=== PATIENT | male | born 1975 | race American Indian/Alaskan Native ===

== ENCOUNTER 2017-08-25 10:04 | Emergency (ER) | payer SELFPAY ==
[2017-08-25] MEDS ORDERED: ASPIRIN PO ONE (10:15)
[2017-08-25 10:32] LABS: Basophils % (Auto) 0.6 % (0.0-1.8); Eosinophils # (Auto) 0.2 K/mm3 (0.0-0.4); Eosinophils % (Auto) 2.2 % (0.0-4.3); Hematocrit 43.4 % (35.5-45.6); Hemoglobin 14.4 gm/dl (11.8-15.2); Lymphocytes # (Auto) 1.1 K/mm3 (1.2-5.4); Lymphocytes % (Auto) 16.4 % (13.4-35.0); Mean Corpuscular HGB Conc 33 % (32-34); Mean Corpuscular Hemoglobin 27 pg (28-32); Mean Corpuscular Volume 81 fl (84-94); Monocytes # (Auto) 0.4 K/mm3 (0.0-0.8); Monocytes % (Auto) 5.4 % (0.0-7.3); Platelet Count 251 K/mm3 (140-440); Red Blood Count 5.33 M/mm3 (3.65-5.03); Red Cell Distribution Width 16.2 % (13.2-15.2)
[2017-08-25 10:42] LABS: BUN/Creatinine Ratio 17; Blood Urea Nitrogen 26 mg/dL (9-20); Calcium 8.8 mg/dL (8.4-10.2); Hemolysis Index 5
--- NOTE | 2017-08-25 13:15 | Emergency Department Report ---
Blank Doc - Documentation Documentation: Patient is a 40-year-old -Congolese male who is presenting with chest pain shortness of breath. Patient states chest pain started approximately one 2 hours ago was at rest was a heaviness on the chest with shortness of breath. Patient also is having shortness of breath with exertion when he was trying to get here to the hospital. Patient states the chest pain has improved slightly. Patient has a history of congestive heart failure and just had some of his medications changed he does not believe he is on a diuretic at this time. Patient states through out the history of cardiac workups he's never had any chest pain before today. Patient's EKG was reviewed and he does have T-wave inversions and ischemic changes present. I did not see any ST elevation consistent with a STEMI. First troponin is negative. Patie besides basic labs and serial troponins also have a d-dimer as well. Patient removed to room 23 and the main for further care and monitoring.
--- NOTE | 2017-08-25 13:31 | XRay Report ---
ROUTINE CHEST, TWO VIEWS: HISTORY: Cough. The trachea, heart, mediastinal contour, lung chowdary and bony thorax are unremarkable. IMPRESSION: Unremarkable chest x-ray.
--- NOTE | 2017-08-25 13:53 | Emergency Department Report ---
ED Chest Pain HPI - General Chief Complaint: Chest Pain Stated Complaint: CHEST PAIN Time Seen by Provider: 08/25/17 13:10 Source: patient Mode of arrival: Ambulatory Limitations: No Limitations - History of Present Illness Initial Comments: 41-year-old AA male presents to the emergency department with complaint of some midsternal chest pain, that he describes as an aching sensation, with some radiation towards the back and associated shortness of breath. All this started about 1-2 hours prior to presentation but at the time I am seeing him after triage and the Q Track, the patient says that he does not have any current symptoms. He says that he is a recovering alcoholic and drinks some alcohol last night and does not know if that had something to do with it. He does have a history of CHF, hypertension and "an enlarged heart." He also says that he went to see a [facility], Dr. Chaves, yesterday for the first time and was started on a new medication, Bidil, and is unsure if that could have been the cause of his symptoms. No recent travel or sick contacst at home. No lower extremity swelling, N/V, fever, diaphoresis. - Related Data Home Medications Medication Instructions Recorded Confirmed Last Taken Aspirin [Aspirin TAB] 325 mg PO QDAY PRN 08/25/17 08/25/17 08/25/17 Carvedilol [Coreg] 25 mg PO BID 08/25/17 08/25/17 08/25/17 Isosorb Dinit/Hydralazine [Bidil 1 each PO BID 08/25/17 08/25/17 08/25/17 20/37.5MG] Allergies Allergy/AdvReac Type Severity Reaction Status Date / Time No Known Allergies Allergy Unverified 08/25/17 10:10 Heart Score - HEART Score History: Moderately suspicious EKG: Non-specific Age: < 45 Risk factors: 1-2 risk factors Troponin: < normal limit HEART Score: 3 - Critical Actions Critical Actions: 0-3 pts:0.9-1.7%risk of adverse cardiac event.Candidate for discharge ED Review of Systems ROS: Stated complaint: CHEST PAIN Other details as noted in HPI Comment: All other systems reviewed and negative Constitutional: denies: chills, fever Eyes: denies: eye pain, eye discharge, vision change ENT: denies: ear pain, throat pain Respiratory: shortness of breath. denies: cough Cardiovascular: chest pain. denies: edema Gastrointestinal: denies: abdominal pain, nausea, diarrhea Genitourinary: denies: urgency, dysuria Musculoskeletal: denies: back pain, joint swelling, arthralgia Skin: denies: rash, lesions Neurological: denies: headache, weakness, paresthesias ED Past Medical Hx - Past Medical History Hx Hypertension: Yes Hx Congestive Heart Failure: Yes Additional medical history: enlarge heart - Surgical History Past Surgical History?: No - Social History Smoking Status: Never Smoker Substance Use Type: Alcohol - Medications Home Medications: Home Medications Medication Instructions Recorded Confirmed Last Taken Type Aspirin [Aspirin TAB] 325 mg PO QDAY PRN 08/25/17 08/25/17 08/25/17 History Carvedilol [Coreg] 25 mg PO BID 08/25/17 08/25/17 08/25/17 History Isosorb Dinit/Hydralazine [Bidil 1 each PO BID 08/25/17 08/25/17 08/25/17 History 20/37.5MG] ED Physical Exam - General Limitations: No Limitations - Other Other exam information: GENERAL: The patient is well-developed well-nourished. HENT: Normocephalic. Atraumatic. Patient has moist mucous membranes. EYES: Extraocular motions are intact. Pupils equal reactive to light bilaterally. NECK: Supple. Trachea is midline. CHEST/LUNGS: Clear to auscultation. There is no respiratory distress noted. HEART/CARDIOVASCULAR: Regular. There is no tachycardia. There is no murmur. ABDOMEN: Abdomen is soft, nontender. Patient has normal bowel sounds. Obese habitus. SKIN: Skin is warm and dry. NEURO: The patient is awake, alert, and oriented. The patient is cooperative. The patient has no focal neurologic deficits. The patient has normal speech and gait. MUSCULOSKELETAL: There is no tenderness or deformity. There is no limitation range of motion. There is no evidence of acute injury. ED Course Vital Signs 08/25/17 08/25/17 08/25/17 10:11 13:15 15:09 Temperature 97.6 F 98.6 F Pulse Rate 83 84 Respiratory 18 16 16 Rate Blood Pressure 148/91 Blood Pressure 138/89 [Left] O2 Sat by Pulse 98 100 100 Oximetry JESUS score - Jesus Score Age > 65: (0) No Aspirin use within the Past 7 Days: (0) No 3 or more CAD Risk Factors: (0) No 2 or more Angina events in past 24 hrs: (1) Yes Known CAD with more than 50% Stenosis: (0) No Elevated Cardiac Markers: (0) No ST Deviation Greater than 0.5mm: (0) No JESUS Score: 1 ED Medical Decision Making - Lab Data Result diagrams: 08/25/17 10:19 08/25/17 10:19 - EKG Data -: EKG Interpreted by Me EKG shows normal: sinus rhythm, axis (left axis deviation), intervals, QRS complexes, ST-T waves (T-wave inversions to the lateral leads) Rate: normal - EKG Data When compared to previous EKG there are: no significant change Interpretation: unchanged when compared t (08/24/17 (from [facility])) - Radiology Data Radiology results: image reviewed interpreted by me: Chest x-ray does not show any acute process. There are no pleural effusions, obvious pneumonia and there is no pneumothorax. There is some cardiomegaly. - Medical Decision Making Patient presented with some chest pain and shortness of breath that started just prior to presentation but resolved by the time he got to the main emergency department. EKG does not show any signs of ST elevation NE. There are a few T-wave inversions throughout the lateral leads but this is unchanged from the EKG I obtained from his cardiology office that was done yesterday. Labs show negative troponins 2 and a negative d-dimer. Chest x-ray does not show any acute process. He does have an elevated BNP but does not have any peripheral edema, any coarse breath sounds, or any pleural effusions or vascular congestion on x-ray. I spoke with [facility] who says that he is already set up for a stress test this coming Monday. Since the patient has had a negative workup thus far and is asymptomatic currently and has good follow -up, he will be discharged home. However he understands to return to the emergency Department with any worsening of symptoms or any acute distress. - Differential Diagnosis CHF, NE, PE, costochondritis, GERD Critical Care Time: No Critical care attestation.: If time is entered above; I have spent that time in minutes in the direct care of this critically ill patient, excluding procedure time. ED Disposition Clinical Impression: History of CHF (congestive heart failure) Chest pain Qualifiers: Chest pain type: unspecified Qualified Code(s): R07.9 - Chest pain, unspecified Disposition: TO HOME OR SELFCARE Is pt being admited?: No Condition: Stable Instructions: Chest Pain (ED) Additional Instructions: Please follow-up with your [facility]riman at [facility] on Monday for your stress test as previously scheduled. Return to the emergency Department with any worsening of her symptoms or any acute distress. Referrals: VINNY ACOSTA MD [Primary Care Provider] - 3-5 Days RALPH CHAVES MD [Staff Physician] - 08/29/17 Time of Disposition: 15:19
[2017-08-25 15:39] VITALS: BP 138/89
== END 2017-08-25 15:19 | disposition home or self-care (01) ==
LOC: ED 10:04 → EDBD 10:04 → ED 15:19
DX: I11.0 Hypertensive heart disease with heart failure (principal); I50.9 Heart failure, unspecified
CPT/HCPCS: 36415; 71046; 80048; 83880; 84484; 85025; 85379; 93005; 93010

== ENCOUNTER 2017-09-02 21:58 | Inpatient (IN) | payer MEDICAID ==
[2017-09-02] MEDS ORDERED: ASPIRIN PO ONE (22:05)
[2017-09-02 22:25] LABS: Basophils # (Auto) 0.1 K/mm3 (0.0-0.1); Basophils % (Auto) 0.6 % (0.0-1.8); Eosinophils # (Auto) 0.2 K/mm3 (0.0-0.4); Eosinophils % (Auto) 2.5 % (0.0-4.3); Hematocrit 43.9 % (35.5-45.6); Hemoglobin 14.8 gm/dl (11.8-15.2); Lymphocytes # (Auto) 1.5 K/mm3 (1.2-5.4); Lymphocytes % (Auto) 17.4 % (13.4-35.0); Mean Corpuscular HGB Conc 34 % (32-34); Mean Corpuscular Hemoglobin 28 pg (28-32); Mean Corpuscular Volume 82 fl (84-94); Monocytes # (Auto) 0.6 K/mm3 (0.0-0.8); Monocytes % (Auto) 6.9 % (0.0-7.3); Platelet Count 230 K/mm3 (140-440); Red Blood Count 5.37 M/mm3 (3.65-5.03); Red Cell Distribution Width 17.4 % (13.2-15.2)
[2017-09-02] MEDS ORDERED: NITRO-BID 2% TP ONE (22:50)
[2017-09-02 22:58] LABS: BUN/Creatinine Ratio 19; Blood Urea Nitrogen 26 mg/dL (9-20); Calcium 8.8 mg/dL (8.4-10.2); Hemolysis Index 8
--- NOTE | 2017-09-02 23:18 | Emergency Department Report ---
HPI - General Chief Complaint: Chest Pain Time Seen by Provider: 09/02/17 22:35 - HPI HPI: Room 23 The patient is a 41-year-old male presenting with a chief complaint chest pain. The patient states approximately 1.5 hours ago while at rest he developed left -sided chest tightness. Patient denies shortness of breath, nausea/vomiting or diaphoresis. The patient states his chest pain has been intermittent. Patient states he had a recent stress test but has not had the results. Patient states she's never had a cardiac catheterization Location: Left chest Duration: Intermittent times 1.5 hours Quality: Tightness Severity: Currently 0/10 Modifying factors: [see above] Context: [see above] Mode of transportation: [not driving] ED Past Medical Hx - Past Medical History Hx Hypertension: Yes Hx Congestive Heart Failure: Yes Additional medical history: enlarge heart - Surgical History Past Surgical History?: No - Family History Family history: no significant - Social History Smoking Status: Former Smoker (none times several months) Substance Use Type: None (denies illicit drug use), Alcohol (every other day) - Medications Home Medications: Home Medications Medication Instructions Recorded Confirmed Last Taken Type Aspirin [Aspirin TAB] 325 mg PO QDAY PRN 08/25/17 08/25/17 08/25/17 History Carvedilol [Coreg] 25 mg PO BID 08/25/17 08/25/17 08/25/17 History Isosorb Dinit/Hydralazine [Bidil 1 each PO BID 08/25/17 08/25/17 08/25/17 History 20/37.5MG] ED Review of Systems ROS: Stated complaint: CHEST PAIN Other details as noted in HPI Constitutional: denies: diaphoresis Respiratory: denies: shortness of breath Cardiovascular: chest pain Gastrointestinal: denies: nausea, vomiting Physical Exam - Physical Exam Vital Signs: Vital Signs 09/02/17 22:01 Temperature 98.6 F Pulse Rate 81 Respiratory 18 Rate Blood Pressure 186/128 O2 Sat by Pulse 100 Oximetry Physical Exam: GENERAL: The patient is well-developed well-nourished male lying on stretcher not appear to be in acute distress. [] HEENT: Normocephalic. Atraumatic. Extraocular motions are intact. Patient has moist mucous membranes. NECK: Supple. Trachea midline CHEST/LUNGS: Clear to auscultation. There is no respiratory distress noted. HEART/CARDIOVASCULAR: Regular. There is no tachycardia. There is no gallop rub or murmur. ABDOMEN: Abdomen is soft, nontender. Patient has normal bowel sounds. There is no abdominal distention. SKIN: There is no rash. There is no edema. There is no diaphoresis. NEURO: The patient is awake, alert, and oriented. The patient is cooperative. The patient has normal speech MUSCULOSKELETAL: There is no evidence of acute injury. ED Course Vital Signs 09/02/17 22:01 Temperature 98.6 F Pulse Rate 81 Respiratory 18 Rate Blood Pressure 186/128 O2 Sat by Pulse 100 Oximetry ED Medical Decision Making - Lab Data Result diagrams: 09/02/17 22:11 09/02/17 22:11 Laboratory Tests 09/02/17 09/02/17 22:11 22:11 WBC 8.7 RBC 5.37 H Hgb 14.8 Hct 43.9 MCV 82 L MCH 28 MCHC 34 RDW 17.4 H Plt Count 230 Lymph % (Auto) 17.4 Roane % (Auto) 6.9 Eos % (Auto) 2.5 Baso % (Auto) 0.6 Lymph # 1.5 Roane # 0.6 Eos # 0.2 Baso # 0.1 Seg Neutrophils % 72.6 H Seg Neutrophils # 6.3 Sodium 138 Potassium 4.0 Chloride 97.1 L Carbon Dioxide 26 Anion Gap 19 BUN 26 H Creatinine 1.4 Estimated GFR > 60 BUN/Creatinine Ratio 19 Glucose 113 H Calcium 8.8 Troponin T < 0.010 - EKG Data -: EKG Interpreted by Me EKG shows normal: sinus rhythm Rate: normal - EKG Data When compared to previous EKG there are: no significant change Interpretation: nonspecific ST-T wave bennie (emergency leads 1, aVL, V6 unchanged compared to previous EKG dated 08/25/2017) - Radiology Data Radiology results: image reviewed (chest x-ray) interpreted by me: Chest x-ray-no focal infiltrate, no pneumothorax - Differential Diagnosis ACS, GERD, pericarditis Critical care attestation.: If time is entered above; I have spent that time in minutes in the direct care of this critically ill patient, excluding procedure time. ED Disposition Clinical Impression: Chest pain Disposition: DC-09 OP ADMIT IP TO THIS HOSP Is pt being admited?: Yes Does the pt Need Aspirin: Yes Condition: Fair Instructions: Chest Pain (ED) Referrals: FLIP AVITIA MD [Primary Care Provider] - 3-5 Days Time of Disposition: 23:31 (hospitalist paged (Dr. Zuleyma Simon))
[2017-09-02] MEDS ORDERED: TYLENOL PO PRN (23:53)
[2017-09-02] MEDS ORDERED: APRESOLINE IV PRN (23:53)
[2017-09-02] MEDS ORDERED: ZOFRAN IV PRN (23:53)
[2017-09-02] MEDS ORDERED: SODIUM CHLORIDE FLUSH SYRINGE 10 ML IV PRN (23:53)
--- NOTE | 2017-09-02 23:53 | History and Physical Report ---
History of Present Illness Date of examination: 09/02/17 History of present illness: 41-year-old man with a history of hypertension comes emergency room with complaints of chest pain that started 2 hours ago. Pain is in the left chest which she describes a pinching pain, intermittent in nature lasting 30 seconds, no radiation, he cannot identify any exacerbating or relieving factors. He denies nausea vomiting, shortness of breath, diaphoresis or palpitation. He had a stress test on Monday with [facility], he does not know the results Review of systems Constitutional: no weight loss, chills Ears, eyes, nose, mouth and throat: no nasal congestion, no nasal discharge, no sinus pressure, no vision change, no red eye. Neck: No neck pain or rigidity. Cardiovascular: no palpitations Respiratory: No cough, shortness of breath Gastrointestinal: no abdominal pain, hematochezia Genitourinary : no dysuria, frequency , no hematuria Musculoskeletal: no joint swelling or muscle ache Integumentary: no rash, no pruritis Neurological: no parathesias, no numbness, no focal weakness Endocrine: no cold or heat intolerance, no polyuria or polydipsia Hematologic/Lymphatic: no easy bruising, no easy bleeding, no gland swelling Allergic/Immunologic: no urticaria, no angioedema. PAST MEDICAL HISTORY: Hypertension PAST SURGICAL HISTORY: None SOCIAL HISTORY: Drinks 5 drinks every other day, no tobacco, drugs FAMILY HISTORY: Hypertension Medications and Allergies Allergies Allergy/AdvReac Type Severity Reaction Status Date / Time No Known Allergies Allergy Unverified 08/25/17 10:10 Home Medications Medication Instructions Recorded Confirmed Last Taken Type Carvedilol [Coreg] 25 mg PO BID 08/25/17 08/25/17 08/25/17 History Potassium Chloride [Klor-Con 10 meq PO 3XW 09/03/17 09/03/17 Unknown History Sprinkle] Aspirin [Aspirin TAB] 325 mg PO QDAY #30 tablet 09/04/17 Unknown Rx Lisinopril [Zestril TAB] 5 mg PO QDAY #30 tablet 09/04/17 Unknown Rx Spironolactone [Aldactone] 25 mg PO QDAY #30 tablet 09/04/17 Unknown Rx amLODIPine [Norvasc] 5 mg PO DAILY #30 tablet 09/04/17 Unknown Rx Exam - Physical Exam Narrative exam: Gen. appearance: Patient lying in bed, no apparent distress HEENT: Normocephalic, atraumatic, pupils equally round and reactive to light, extraocular movement intact, and no sclericterus,. No JVD or thyromegaly or nodule,neck supple, no carotid bruit ,mucous membranes moist, no exudate or erythema Heart: S1, S2, regular rate and rhythm Lungs: Clear to auscultation bilaterally, breathing comfortable Abdomen: Positive bowel sounds, nontender, nondistended, no organomegaly Extremity: No edema, cyanosis, clubbing Skin: No rash, nodules, warm, dry Neuro: Oriented 3, cranial nerves II-12 intact, speech is fluent, motor and sensory intact - Constitutional Vitals: Temp Pulse Resp BP Pulse Ox 98.6 F 81 18 186/128 100 09/02/17 22:01 09/02/17 22:01 09/02/17 22:01 09/02/17 22:01 09/02/17 22:01 Results - Labs CBC & Chem 7: 09/03/17 04:32 09/03/17 04:32 Labs: Abnormal lab results 09/02/17 09/02/17 Range/Units 22:11 22:11 RBC 5.37 H (3.65-5.03) M/mm3 MCV 82 L (84-94) fl RDW 17.4 H (13.2-15.2) % Seg Neutrophils % 72.6 H (40.0-70.0) % Chloride 97.1 L (98-107) mmol/L BUN 26 H (9-20) mg/dL Glucose 113 H (75-100) mg/dL - Imaging and Cardiology EKG: image reviewed Chest x-ray: image reviewed Assessment and Plan Assessment Hypertensive urgency Chest pain Plan Admit to medicine Check cardiac enzymes, consult cardiology IV hydralazine for blood pressure control Continue appropriate outpatient medication DVT prophylaxis
[2017-09-03] MEDS ORDERED: ASPIRIN PO PRN (00:01)
--- NOTE | 2017-09-03 01:20 | XRay Report ---
FINAL REPORT EXAM: XR CHEST 1V AP HISTORY: Chest pain. TECHNIQUE: A single frontal portable radiograph of the chest was obtained. No prior studies are available for comparison. FINDINGS: There are slightly low lung volumes. There does appear to be mild cardiomegaly. There is mild central pulmonary vascular congestion with mild bilateral patchy perihilar opacities. These are probably on the basis of mild pulmonary edema/congestive heart failure, and clinical correlation is recommended. Pneumonia is not excluded. There is no pleural effusion or pneumothorax. No significant osseous abnormalities are identified. IMPRESSION: Cardiomegaly, with findings suggestive of mild pulmonary edema/congestive heart failure.
[2017-09-03] MEDS: MORPHINE IV PRN ×2 (01:57→21:06)
[2017-09-03 06:31] LABS: BUN/Creatinine Ratio 18; Blood Urea Nitrogen 24 mg/dL (9-20); Calcium 8.6 mg/dL (8.4-10.2); Hemolysis Index 10
[2017-09-03 06:44] LABS: Hematocrit 42.8 % (35.5-45.6); Hemoglobin 14.3 gm/dl (11.8-15.2); Lymphocytes % (Auto) 18.7 % (13.4-35.0); Mean Corpuscular HGB Conc 34 % (32-34); Mean Corpuscular Hemoglobin 27 pg (28-32); Mean Corpuscular Volume 82 fl (84-94); Mean Platelet Volume 8.3 fl (6-12); Platelet Count 231 K/mm3 (140-440); Red Blood Count 5.25 M/mm3 (3.65-5.03); Red Cell Distribution Width 17.8 % (13.2-15.2)
[2017-09-03 06:45] LABS: Eosinophils # (Auto) 0.2 K/mm3 (0.0-0.4); Eosinophils % (Auto) 2.6 % (0.0-4.3); Lymphocytes # (Auto) 1.3 K/mm3 (1.2-5.4); Monocytes # (Auto) 0.5 K/mm3 (0.0-0.8); Monocytes % (Auto) 6.7 % (0.0-7.3)
[2017-09-03] MEDS ORDERED: LOVENOX SUB-Q SCH (10:00)
--- NOTE | 2017-09-03 10:40 | Consultation ---
History of Present Illness Consult date: 09/03/17 Consult reason: chest pain History of present illness: 41 YO man with h/o recently diagnosed cardiomyopathy, htn, and alcohol abuse who is currently hospitalized due to recurrent chest pain. He describes the pain as a pinchicng sensation in his left chest which only lasts for a few minutes and is not associated with dyspnea, nausea or diaphoresis. He has prior h/o alcoholism and had stopped drinking for several months - he recently relapsed last week and had started drinking again but now has committed to stopping again. He was hospitalized at [facility] in 06/2017 and was found to have newly diagnosed cardiomyopathy. Cardiac cath was planned but not performed due to acute kidney injury. He was also not discharged with ACEI or ARB due to renal dysfunction. Echocardiogram at [facility] on 06/29/17 revealed EF of 20% He was recently evaluated by Dr. Nassar and MPI on 08/30/17 revealed large, severe, fixed inferior defect suggestive of prior AL. ECG reveals NSR with incomplete LBBB Past History Past Medical History: heart failure, hypertension, renal failure Social history: alcohol abuse Family history: CAD Medications and Allergies Allergies Allergy/AdvReac Type Severity Reaction Status Date / Time No Known Allergies Allergy Unverified 08/25/17 10:10 Home Medications Medication Instructions Recorded Confirmed Last Taken Type Aspirin [Aspirin TAB] 325 mg PO QDAY PRN 08/25/17 08/25/17 08/25/17 History Carvedilol [Coreg] 25 mg PO BID 08/25/17 08/25/17 08/25/17 History Isosorb Dinit/Hydralazine [Bidil 1 each PO BID 08/25/17 08/25/17 08/25/17 History 20/37.5MG] Potassium Chloride [Klor-Con 10 meq PO 3XW 09/03/17 09/03/17 Unknown History Sprinkle] amLODIPine [Norvasc] 5 mg PO DAILY 09/03/17 09/03/17 Unknown History Active Meds: Active Medications Acetaminophen (Tylenol) 650 mg PO Q4H PRN PRN Reason: Pain MILD(1-3)/Fever >100.5/OJEDA Aspirin (Aspirin) 325 mg PO QDAY MARTY Aspirin (Aspirin) 325 mg PO QDAY PRN PRN Reason: Pain Carvedilol (Coreg) 25 mg PO BID MARTY Enoxaparin Sodium (Lovenox) 40 mg SUB-Q QDAY@1000 MARTY Hydralazine HCl (Apresoline) 5 mg IV Q6H PRN PRN Reason: Hypertension Isosorbide Dinitrate/Hydralazine (Bidil 20/37.5mg) 1 each PO BID MARTY Morphine Sulfate (Morphine) 2 mg IV Q4H PRN PRN Reason: Pain, Moderate (4-6) Last Admin: 09/03/17 01:57 Dose: 2 mg Ondansetron HCl (Zofran) 4 mg IV Q8H PRN PRN Reason: Nausea And Vomiting Sodium Chloride (Sodium Chloride Flush Syringe 10 Ml) 10 ml IV BID MARTY Sodium Chloride (Sodium Chloride Flush Syringe 10 Ml) 10 ml IV PRN PRN PRN Reason: LINE FLUSH Review of Systems All systems: negative (per hpi) Physical Examination Vital Signs Temp Pulse Resp BP Pulse Ox 98.6 F 81 18 186/128 100 09/02/17 22:01 09/02/17 22:01 09/02/17 22:01 09/02/17 22:01 09/02/17 22:01 General appearance: no acute distress HEENT: Positive: PERRL, EOMI Neck: Positive: neck supple Cardiac: Positive: Reg Rate and Rhythm Lungs: Positive: clear to auscultation, Normal Breath Sounds Neuro: Positive: Grossly Intact Abdomen: Positive: Soft, Active Bowel Sounds Extremities: Absent: edema Results 09/03/17 04:32 09/03/17 04:32 CBC 09/02/17 09/03/17 Range/Units 22:11 04:32 WBC 8.7 6.9 (4.5-11.0) K/mm3 RBC 5.37 H 5.25 H (3.65-5.03) M/mm3 Hgb 14.8 14.3 (11.8-15.2) gm/dl Hct 43.9 42.8 (35.5-45.6) % Plt Count 230 231 (140-440) K/mm3 Lymph # 1.5 1.3 (1.2-5.4) K/mm3 Moffat # 0.6 0.5 (0.0-0.8) K/mm3 Eos # 0.2 0.2 (0.0-0.4) K/mm3 Baso # 0.1 0.0 (0.0-0.1) K/mm3 Comprehensive Metabolic Panel 09/02/17 09/03/17 Range/Units 22:11 04:32 Sodium 138 139 (137-145) mmol/L Potassium 4.0 3.3 L (3.6-5.0) mmol/L Chloride 97.1 L 97.5 L (98-107) mmol/L Carbon Dioxide 26 28 (22-30) mmol/L BUN 26 H 24 H (9-20) mg/dL Creatinine 1.4 1.3 (0.8-1.5) mg/dL Glucose 113 H 104 H (75-100) mg/dL Calcium 8.8 8.6 (8.4-10.2) mg/dL Assessment and Plan Atypical chest pain Recently diagnosed Cardiomyopathy EF 20% based on echocardiogram 06/2017 Abnormal MPI 08/30/17 suiggestive of prior inferior wall AL Htn H/O Alcoholism: Recent relapse but now stopped. Recommend: Titrate medications to achieve BP control Add ACEI or ARB prior to discharge if renal function remains stable Given recurrent chest pain and severe cardiomyopathy, recommend proceeding with left heart cath to help determine cause of cardiomyopathy and guide treatment - will tentatively plan for tomorrow.
[2017-09-03] MEDS: BIDIL 20/37.5MG PO SCH ×2 (10:48→21:08)
[2017-09-03] MEDS: LOVENOX SUB-Q SCH (10:49)
[2017-09-03] MEDS: ASPIRIN PO SCH (10:49)
[2017-09-03] MEDS: COREG PO SCH ×2 (10:49→21:05)
[2017-09-03] MEDS: SODIUM CHLORIDE FLUSH SYRINGE 10 ML IV SCH ×2 (10:50→21:08)
--- NOTE | 2017-09-03 10:58 | Progress Note ---
Assessment and Plan Assessment and plan: 41-year-old man with a history of hypertension comes emergency room with complaints of chest pain, has known hx of systolic CHF, EF 20%, he was planned for cath at [facility] , but was postponed due to HERON, he was in process of trying to get it set up as an outpatient Assessment Hypertensive urgency Chest pain chronic sytolic chF CKD stage 2 Plan optimize BP meds CE neg, cardiology evaluating for possible cath Euvolemic with regards to CHF, optimize BP meds renal function stable, will start on TRINO prior to DC History Interval history: Review of systems Constitutional: No fevers, no malaise, no joint pains CVS: No chest pain, no orthopnea, no dyspnea on exertion, no pedal edema GI: No abdominal pain, no diarrhea, no vomiting, no constipation Respiratory: No shortness of breath, no wheezing, no coughing Hospitalist Physical - Physical exam Narrative exam: General.: Appears well, no distress, nontoxic HEENT: Moist mucous membranes, extraocular muscles intact, no lymphadenopathy Neck: supple Cardiac: S1-S2 heard Lungs: clear to auscultation bilaterally Abdomen: soft , nontender, nondistended, bowel sounds positive Extremities: no edema clubbing or cyanosis Skin: no rash or lesions Neurologic: no gross focal deficits Psych: appropriate behavior, appropriate mood, corporative, judgment intact - Constitutional Vitals: Temp Pulse Resp BP Pulse Ox 97.9 F 67 20 147/103 95 09/03/17 08:22 09/03/17 08:22 09/03/17 08:22 09/03/17 08:22 09/03/17 08:22 General appearance: Present: no acute distress Results - Labs CBC & Chem 7: 09/03/17 04:32 09/03/17 04:32 Labs: Laboratory Last Values WBC 6.9 K/mm3 (4.5-11.0) 09/03/17 04:32 RBC 5.25 M/mm3 (3.65-5.03) H 09/03/17 04:32 Hgb 14.3 gm/dl (11.8-15.2) 09/03/17 04:32 Hct 42.8 % (35.5-45.6) 09/03/17 04:32 MCV 82 fl (84-94) L 09/03/17 04:32 MCH 27 pg (28-32) L 09/03/17 04:32 MCHC 34 % (32-34) 09/03/17 04:32 RDW 17.8 % (13.2-15.2) H 09/03/17 04:32 Plt Count 231 K/mm3 (140-440) 09/03/17 04:32 Lymph % (Auto) 18.7 % (13.4-35.0) 09/03/17 04:32 [place] % (Auto) 6.7 % (0.0-7.3) 09/03/17 04:32 Eos % (Auto) 2.6 % (0.0-4.3) 09/03/17 04:32 Baso % (Auto) 0.0 % (0.0-1.8) 09/03/17 04:32 Lymph # 1.3 K/mm3 (1.2-5.4) 09/03/17 04:32 [place] # 0.5 K/mm3 (0.0-0.8) 09/03/17 04:32 Eos # 0.2 K/mm3 (0.0-0.4) 09/03/17 04:32 Baso # 0.0 K/mm3 (0.0-0.1) 09/03/17 04:32 Add Manual Diff Complete 09/03/17 04:32 Seg Neutrophils % 71.4 % (40.0-70.0) H 09/03/17 04:32 Seg Neutrophils # 4.9 K/mm3 (1.8-7.7) 09/03/17 04:32 Sodium 139 mmol/L (137-145) 09/03/17 04:32 Potassium 3.3 mmol/L (3.6-5.0) L 09/03/17 04:32 Chloride 97.5 mmol/L (98-107) L 09/03/17 04:32 Carbon Dioxide 28 mmol/L (22-30) 09/03/17 04:32 Anion Gap 17 mmol/L 09/03/17 04:32 BUN 24 mg/dL (9-20) H 09/03/17 04:32 Creatinine 1.3 mg/dL (0.8-1.5) 09/03/17 04:32 Estimated GFR > 60 ml/min 09/03/17 04:32 BUN/Creatinine Ratio 18 % 09/03/17 04:32 Glucose 104 mg/dL (75-100) H 09/03/17 04:32 Calcium 8.6 mg/dL (8.4-10.2) 09/03/17 04:32 Troponin T < 0.010 ng/mL (0.00-0.029) 09/03/17 04:32
[2017-09-04] MEDS ORDERED: NACL 0.9% 500 ML 500 ML IV SCH ×2 (09:00→12:00)
[2017-09-04] MEDS ORDERED: K-DUR PO NR (09:30)
[2017-09-04] MEDS: BIDIL 20/37.5MG PO SCH (09:33)
[2017-09-04] MEDS: ASPIRIN PO SCH (09:33)
[2017-09-04] MEDS: SODIUM CHLORIDE FLUSH SYRINGE 10 ML IV SCH (09:39)
[2017-09-04] MEDS ORDERED: CATAPRES PO ONE (10:08)
[2017-09-04] MEDS ORDERED: CATAPRES ONE (10:08)
[2017-09-04 10:17] LABS: INR 0.9 (0.87-1.13)
[2017-09-04] MEDS ORDERED: XYLOCAINE 2% INFILTRATI ONE ×2 (10:37→10:39)
[2017-09-04] MEDS ORDERED: HEPARIN 10,000 UNITS/10 ML ONE (10:37)
[2017-09-04] MEDS ORDERED: NITROGLYCERIN SYRINGE 3 ML ONE (10:37)
[2017-09-04] MEDS ORDERED: CALAN ONE (10:37)
[2017-09-04] MEDS ORDERED: VERSED ONE (10:38)
[2017-09-04] MEDS ORDERED: SUBLIMAZE ONE (10:38)
--- NOTE | 2017-09-04 10:41 | Progress Note ---
Assessment and Plan Atypical chest pain Recently diagnosed Cardiomyopathy EF 20% on echocardiogram 06/2017. Abnormal MPI 08/30/17 suggestive of prior inferior wall MN. Htn H/O Alcoholism: Recent relapse but now stopped. Recommend: Optimal BP control. Further cardiac evaluation with a cardiac catheterization today. Subjective Date of service: 09/04/17 Interval history: Patient has no complaints. For planned cardiac cath today. Objective Vital Signs Temp Pulse Resp Resp BP BP Pulse Ox 09/04/17 10:22 87 172/124 09/04/17 07:38 98.4 F 77 20 159/123 97 09/04/17 01:00 74 09/04/17 00:02 97.9 F 71 18 146/105 100 09/03/17 22:40 98 09/03/17 22:00 20 09/03/17 21:08 75 161/118 09/03/17 21:06 18 09/03/17 21:05 75 161/118 09/03/17 19:45 98.2 F 79 22 161/118 97 09/03/17 18:07 97.8 F 78 20 166/105 96 09/03/17 11:41 97.9 F 70 20 137/84 96 - Physical Examination General: No Apparent Distress HEENT: Positive: PERRL Neck: Positive: trachea midline Cardiac: Positive: Reg Rate and Rhythm Lungs: Positive: Decreased Breath Sounds Neuro: Positive: Grossly Intact Extremities: Absent: edema - Labs and Meds Coagulation 09/04/17 Range/Units 09:30 PT 12.6 (12.2-14.9) Sec. INR 0.90 (0.87-1.13) - Imaging and Cardiology EKG: image reviewed
[2017-09-04] MEDS: NACL 0.9% 500 ML 500 ML ONE ×2 (10:50→10:55)
[2017-09-04] MEDS: HEPARIN/NS 5000 UNIT/500ML(CATH LAB) 1,000 ML IR ONE ×2 (10:50→10:53)
[2017-09-04] MEDS ORDERED: APRESOLINE ONE (11:07)
--- NOTE | 2017-09-04 11:52 | Cardiac Catherization Report ---
LEFT HEART CATHETERIZATION INDICATION: Cardiomyopathy, abnormal myocardial perfusion scan, chest pain. ORDERING PHYSICIAN: Sung Jones MD PROCEDURES PERFORMED: 1. Selective left and right coronary angiography. 2. Ascending aortography. DESCRIPTION OF PROCEDURE: After obtaining the consent, the patient was draped using sterile technique. A 2% lidocaine was injected into the right wrist. A 5-Australian vascular sheath was inserted into the right radial artery. A 5-Australian JL5 catheter was used to selectively engage the left coronary artery. A 5-Australian JR4 catheter was used to selectively engage the right coronary artery. A 5-Australian pigtail catheter was used to perform an ascending aortogram. Left ventriculogram was not performed. No complications occurred during the procedure. Hemostasis was achieved at the end of the procedure using manual pressure. SPECIMEN REMOVED: None. Physician and patient [id number] sedation start time is 10:50 a.m. Physician and patient [id number] sedation stop time is 11:06 a.m. Total sedation time is 16 minutes. FINDINGS: HEMODYNAMICS: Aortic pressure was 142/103. CARDIAC STRUCTURES: A left ventriculogram was not performed. An ascending aortogram was performed revealing a normal sized aortic root. CORONARY ANATOMY: 1. This is a right dominant circulation. 2. The left main is angiographically normal. 3. The LAD is angiographically normal. 4. Left circumflex artery is angiographically normal. 5. The right coronary artery is angiographically normal. IMPRESSION: 1. Angiographically normal coronary circulation. 2. Normal ascending aortogram. RECOMMENDATIONS: Medical therapy for nonischemic cardiomyopathy. JOB# [id number] KATHLEEN/NAZIA
--- NOTE | 2017-09-04 12:32 | Discharge Summary ---
Providers - Providers Date of Admission: 09/02/17 23:53 Attending physician: ANAM CHAPIN MD 09/02/17 23:53 Consult to Physician [CONS] Routine Consulting Provider: SHAYY JUNG Reason For Exam: cp Place consult to:: Notified:: Phone number called:: [phone] Was contact made?: Yes If yes, spoke with:: RU Time called:: 08:45 Comment:: KARRIE 09/04/17 11:36 Consult to Cardiac Rehabilitation [CONS] Routine Reason For Exam: Cardiac Rehab Evaluation Primary care physician: FLIP AVITIA Hospitalization Condition: Fair Exam - Constitutional Vitals: Temp Pulse Resp BP Pulse Ox 98.4 F 87 20 172/124 97 09/04/17 07:38 09/04/17 10:22 09/04/17 07:38 09/04/17 10:22 09/04/17 07:38 Plan Follow up with: FLIP AVITIA MD [Primary Care Provider] - 3-5 Days Prescriptions: amLODIPine [Norvasc] 5 mg PO DAILY #30 tablet Aspirin [Aspirin TAB] 325 mg PO QDAY #30 tablet Lisinopril [Zestril TAB] 5 mg PO QDAY #30 tablet Spironolactone [Aldactone] 25 mg PO QDAY #30 tablet
[2017-09-04] MEDS: LOVENOX SUB-Q SCH (12:55)
[2017-09-04] MEDS: COREG PO SCH (12:55)
[2017-09-04] MEDS ORDERED: ZESTRIL PO SCH (13:00)
[2017-09-04] MEDS ORDERED: ALDACTONE PO SCH (13:00)
[2017-09-04] MEDS ORDERED: BIDIL 20/37.5MG PO SCH (14:00)
[2017-09-04 15:26] VITALS: BP 135/98
== END 2017-09-04 15:30 | disposition home or self-care (01) | DRG 287 ==
LOC: ED 21:58 → 4A 23:53
PROVIDERS: ADMIT Internal Medicine; ATTEND Internal Medicine
PROC: 4A023N7 Measurement of Cardiac Sampling and Pressure, Left Heart, Percutaneous Approach (ICD-10-PCS; principal; 2017-09-04)
PROC: B2111ZZ Fluoroscopy of Multiple Coronary Arteries using Low Osmolar Contrast (ICD-10-PCS; 2017-09-04)
PROC: B3101ZZ Fluoroscopy of Thoracic Aorta using Low Osmolar Contrast (ICD-10-PCS; 2017-09-04)
DX: R07.89 Other chest pain (principal); I50.22 Chronic systolic (congestive) heart failure; I42.9 Cardiomyopathy, unspecified; I16.0 Hypertensive urgency; I13.0 Hypertensive heart and chronic kidney disease with heart failure and stage 1 through stage 4 chronic kidney disease, or unspecified chronic kidney disease; N18.2 Chronic kidney disease, stage 2 (mild); Z79.82 Long term (current) use of aspirin; Z79.899 Other long term (current) drug therapy; Z82.49 Family history of ischemic heart disease and other diseases of the circulatory system
CPT/HCPCS: 36415; 71045; 80048; 84484; 85025; 85610; 93005; 93010; 93458; 93567; C1894; J0360; J1644; J1650; J2250; J2270; J3010; J7040; Q9967

== ENCOUNTER 2019-05-05 13:56 | Emergency (ER) | payer MEDICAID ==
--- NOTE | 2019-05-05 15:11 | Event Note ---
ED Screening Note Date of service: 05/05/19 Time: 15:07 ED Screening Note: Pt complains of elevated BP, SOB, and dry cough x 1 week. states abdomen feels full denies any chest pain or fever denies leg swelling +Hx of CHF Denies hx of DVT/PE, recent long travel, or leg pain states he stopped taking all of his BP meds 8 months ago because they hurt his stomach This initial assessment/diagnostic orders/clinical plan/treatment(s) is/are subject to change based on patients health status, clinical progression and re- assessment by fellow clinical providers in the ED. Further treatment and workup at subsequent clinical providers discretion. Patient/guardian urged not to elope from the ED as their condition may be serious if not clinically assessed and managed. Initial orders include: ;abs CXR
[2019-05-05] MEDS ORDERED: cloNIDine 0.1 MG TAB PO ONE (16:34)
[2019-05-05] MEDS ORDERED: FUROSEMIDE 20 MG TAB PO ONE (16:35)
--- NOTE | 2019-05-05 16:40 | XRay Report ---
CHEST 2 VIEWS INDICATION / CLINICAL INFORMATION: shortness of breath. COMPARISON: None available. FINDINGS: SUPPORT DEVICES: None. HEART / MEDIASTINUM: No significant abnormality. LUNGS / PLEURA: No significant pulmonary or pleural abnormality. No pneumothorax. ADDITIONAL FINDINGS: No significant additional findings. IMPRESSION: 1. No acute findings. Signer Name: Roberto Mcdonnell MD Signed: 05/05/2019 4:36 PM Workstation Name: [id number]
--- NOTE | 2019-05-05 16:40 | Emergency Department Report ---
<OTONIEL CLIFTON - Last Filed: 05/05/19 20:51> ED Shortness of Breath HPI - General Chief Complaint: Dyspnea/Respdistress Stated Complaint: CHEST PAIN/CHF/SOB Time Seen by Provider: 05/05/19 15:06 - Related Data Home Medications Medication Instructions Recorded Confirmed Last Taken Potassium Chloride [Klor-Con 10 meq PO 3XW 09/03/17 09/03/17 Unknown Sprinkle] Previous Rx's Medication Instructions Recorded Last Taken Type Aspirin 325 mg PO QDAY #30 tablet 09/04/17 Unknown Rx Spironolactone [Aldactone] 25 mg PO QDAY #30 tablet 09/04/17 Unknown Rx amLODIPine 5 mg PO DAILY #30 tablet 09/04/17 Unknown Rx Amlodipine Besylate [Norvasc] 5 mg PO DAILY #30 tablet 05/05/19 Unknown Rx Furosemide [Lasix] 20 mg PO BID #60 tablet 05/05/19 Unknown Rx Lisinopril [Zestril TAB] 20 mg PO QDAY #30 tablet 05/05/19 Unknown Rx Allergies Allergy/AdvReac Type Severity Reaction Status Date / Time No Known Allergies Allergy Unverified 05/05/19 14:26 ED Past Medical Hx - Medications Home Medications: Home Medications Medication Instructions Recorded Confirmed Last Taken Type Potassium Chloride [Klor-Con 10 meq PO 3XW 09/03/17 09/03/17 Unknown History Sprinkle] Aspirin 325 mg PO QDAY #30 tablet 09/04/17 Unknown Rx Spironolactone [Aldactone] 25 mg PO QDAY #30 tablet 09/04/17 Unknown Rx amLODIPine 5 mg PO DAILY #30 tablet 09/04/17 Unknown Rx Amlodipine Besylate [Norvasc] 5 mg PO DAILY #30 tablet 05/05/19 Unknown Rx Furosemide [Lasix] 20 mg PO BID #60 tablet 05/05/19 Unknown Rx Lisinopril [Zestril TAB] 20 mg PO QDAY #30 tablet 05/05/19 Unknown Rx ED Medical Decision Making - Lab Data Result diagrams: 05/05/19 17:47 05/05/19 17:47 - Medical Decision Making had borderline elevation of his troponin. The patient states that he has no chest pain per my conversation with the patient. Patient does have some shortness of breath that he attributes to not having his Lasix.. Patient's two- hour delta troponin has not changed significantly. Patient has some mild renal insufficiency that likely is the cause of the patient's bump in his troponin. Patient will be discharged home. Patient given a follow-up with cardiology. Consult has been sent and they will return to the patient for appointment. ED Disposition Clinical Impression: CHF exacerbation Qualifiers: Heart failure type: unspecified Qualified Code(s): I50.9 - Heart failure, unspecified Hypertension Qualifiers: Hypertension type: essential hypertension Qualified Code(s): I10 - Essential (primary) hypertension Disposition: DC- TO HOME OR SELFCARE Condition: Stable Instructions: Heart Failure (ED), Hypertension (ED) Prescriptions: Furosemide [Lasix] 20 mg PO BID #60 tablet Amlodipine Besylate [Norvasc] 5 mg PO DAILY #30 tablet Lisinopril [Zestril TAB] 20 mg PO QDAY #30 tablet Referrals: JAGDISH LEE MD [Staff Physician] - 3-5 Days NEO GRAMAJO MD [Staff Physician] - 3-5 Days Time of Disposition: 20:53 <ABAD BAZAN - Last Filed: 05/06/19 14:12> ED Shortness of Breath HPI - General Source: patient Mode of arrival: Ambulatory Limitations: No Limitations - History of Present Illness Initial Comments: Patient is 43 years old male with history of congestive heart failure and hypertension. Patient presented to the ER complaining of shortness of breath for one week. Patient stated that he stopped his medications one year ago and he only doing natural remedies. patient denied any chest pain, fever, chills, abdominal pain. Complaint: shortness of breath, cough -: week(s) Consistency: intermittent Known History Of: congestive heart failure ED Review of Systems ROS: Stated complaint: CHEST PAIN/CHF/SOB Other details as noted in HPI Comment: All other systems reviewed and negative Constitutional: denies: chills, fever Respiratory: cough, shortness of breath, SOB with exertion. denies: orthopnea, SOB at rest, wheezing Cardiovascular: denies: chest pain, palpitations Gastrointestinal: denies: abdominal pain, nausea Neurological: denies: headache, weakness ED Past Medical Hx - Past Medical History Hx Hypertension: Yes Hx Congestive Heart Failure: Yes Additional medical history: enlarge heart - Social History Smoking Status: Never Smoker Substance Use Type: None ED Physical Exam - General Limitations: No Limitations General appearance: alert, in no apparent distress - Head Head exam: Present: atraumatic, normocephalic, normal inspection - Eye Eye exam: Present: normal appearance - ENT ENT exam: Present: normal exam, normal orophraynx, mucous membranes moist - Neck Neck exam: Present: normal inspection. Absent: tenderness, meningismus - Respiratory Respiratory exam: Present: normal lung sounds bilaterally. Absent: respiratory distress, wheezes, rales, rhonchi, accessory muscle use, decreased breath sounds, prolonged expiratory - Cardiovascular Cardiovascular Exam: Present: regular rate, normal rhythm, normal heart sounds - GI/Abdominal GI/Abdominal exam: Present: soft, normal bowel sounds. Absent: distended, tenderness, guarding, rebound, rigid - Extremities Exam Extremities exam: Present: normal inspection, full ROM, normal capillary refill. Absent: pedal edema, calf tenderness - Back Exam Back exam: Present: normal inspection, full ROM. Absent: CVA tenderness (R), CVA tenderness (L) - Neurological Exam Neurological exam: Present: alert, oriented X3, CN II-XII intact, normal gait, reflexes normal - Skin Skin exam: Present: warm, normal color ED Course Vital Signs 05/05/19 05/05/19 05/05/19 14:05 16:53 18:47 Temperature 98.5 F Pulse Rate 111 H 111 H 96 H Respiratory 19 16 Rate Blood Pressure 165/124 165/124 Blood Pressure 163/110 [Right] O2 Sat by Pulse 98 99 Oximetry 05/05/19 05/05/19 19:29 19:34 Temperature Pulse Rate 106 H 106 H Respiratory 18 Rate Blood Pressure 182/115 Blood Pressure 182/115 [Right] O2 Sat by Pulse 98 Oximetry ED Medical Decision Making - Lab Data Result diagrams: 05/05/19 17:47 05/05/19 17:47 - EKG Data -: EKG Interpreted by [place] EKG shows normal: sinus rhythm Rate: tachycardia - EKG Data Interpretation: no acute changes - Radiology Data Radiology results: report reviewed - Medical Decision Making Patient is 43 years old male with history of congestive heart failure and hypertension. Patient presented to the ER complaining of shortness of breath for one week. Patient stated that he stopped his medications one year ago and he only doing natural remedies. patient denied any chest pain, fever, chills, abdominal pain. Critical care attestation.: If time is entered above; I have spent that time in minutes in the direct care of this critically ill patient, excluding procedure time. ED Disposition Is pt being admited?: No
[2019-05-05 17:54] LABS: Hematocrit 40.2 % (35.5-45.6); Hemoglobin 13.6 gm/dl (11.8-15.2); Mean Corpuscular HGB Conc 34 % (32-34); Mean Corpuscular Volume 87 fl (84-94); Platelet Count 270 K/mm3 (140-440); Red Blood Count 4.61 M/mm3 (3.65-5.03)
[2019-05-05 18:22] LABS: Albumin 4.2 g/dL (3.9-5); Calcium 9.1 mg/dL (8.4-10.2)
[2019-05-05 18:58] LABS: Chol/HDL Ratio 4.42 %
[2019-05-05 19:31] VITALS: BP 182/115
[2019-05-05] MEDS ORDERED: METOPROLOL TARTRATE 50 MG TAB PO ONE (19:32)
== END 2019-05-05 21:17 | disposition home or self-care (01) ==
LOC: ED 13:56
DX: I11.0 Hypertensive heart disease with heart failure (principal); I50.9 Heart failure, unspecified; Z79.82 Long term (current) use of aspirin; Z79.899 Other long term (current) drug therapy
CPT/HCPCS: 36415; 71046; 80053; 80061; 83880; 84484; 85027; 93005; 93010; 99284

== ENCOUNTER 2019-06-14 10:27 | Outpatient (CLI) | payer MEDICAID ==
[2019-06-14 11:03] LABS: Calcium 9.3 mg/dL (8.4-10.2)
== END 2019-06-14 10:28 | disposition home or self-care (01) ==
LOC: LAB 10:27
PROVIDERS: ATTEND Internal Medicine Cardiovascular Disease
DX: I10 Essential (primary) hypertension (principal)
CPT/HCPCS: 36415; 80048

== ENCOUNTER 2020-01-04 15:48 | Emergency (ER) | payer MEDICAID ==
[2020-01-04 15:55] VITALS: BP 164/113
--- NOTE | 2020-01-04 17:02 | Emergency Department Report ---
Chief Complaint: Eye Problems Stated Complaint: RED EYES - HPI History of Present Illness: Patient for 5 he denies fall injury or other trauma. 4-year-old - [place] male who presents for right pain and swelling sudden onset 2 hours ago while washing dishes. Patient has history of hypertension BP today 164/113. Patient states decreased vision and staying to with blurred vision. htn rx: amlodipine, carvedilol, hctz, - Exam Vital Signs: Vital Signs 01/04/20 15:55 Temperature 98.4 F Pulse Rate 73 Respiratory 17 Rate Blood Pressure 164/113 O2 Sat by Pulse 96 Oximetry MSE screening note: Focused history and physical exam performed. Due to findings the following was ordered: ED Disposition for MSE Condition: Stable
--- NOTE | 2020-01-04 17:03 | Event Note ---
ED Screening Note Date of service: 01/04/20 Time: 17:03 ED Screening Note: Patient for 5 he denies fall injury or other trauma. 4-year-old - [place] male who presents for right pain and swelling sudden onset 2 hours ago while washing dishes. Patient has history of hypertension BP today 164/113. Patient states decreased vision and staying to with blurred vision. htn rx: amlodipine, carvedilol, hctz, This initial assessment/diagnostic orders/clinical plan/treatment(s) is/are subject to change based on patients health status, clinical progression and re- assessment by fellow clinical providers in the ED. Further treatment and workup at subsequent clinical providers discretion. Patient/guardian urged not to elope from the ED as their condition may be serious if not clinically assessed and managed. Initial orders include:
[2020-01-04] MEDS ORDERED: FAMOTIDINE 20 MG TAB PO ONE (20:18)
[2020-01-04] MEDS ORDERED: dexAMETHasone 20 MG/5 ML VIAL IM ONE (20:18)
--- NOTE | 2020-01-04 20:23 | Emergency Department Report ---
ED Eye Problem HPI - General Chief complaint: Eye Problems Stated complaint: RED EYES Source: patient Mode of arrival: Ambulatory Limitations: No Limitations - History of Present Illness Initial comments: Patient is a 44-year-old -[place] male with past medical history of hypertension and CHF who presents to the ED with complaint of acute onset persistent painful erythematous itchy right eye with tearing for the last 6 hours after he touched his eye with his shirt about 6 hours ago. Patient states that he is allergic to cats and had touched a cat prior to touching his clothes and his eyes accidentally. Patient states that initially the redness and the swelling as well as tearing was worse the intensity of the symptoms has improved after being in the emergency room. Patient denies vision loss, vision changes, matting, purulent discharge, dizziness, headache, nasal and sinus congestion, dizziness, syncope, chest pain, fever and chills, shortness of breath, cough or sore throat. MD chief complaint: eye pain (eye), eye redness (right eye) -: Sudden, hour(s) (6) Onset Description: sudden Location: right eye Place: home If Injury: none Eye Symptoms: burning, redness, pain, itching, discharge Severity: moderate Severity scale (0 -10): 4 If Pain, Quality: burning, aching Consistency: constant Associated Symptoms: none Treatments Prior to Arrival: irrigated eye - Related Data Patient Tetanus UTD: Yes Home Medications Medication Instructions Recorded Confirmed Last Taken Potassium Chloride [Klor-Con 10 meq PO 3XW 09/03/17 09/03/17 Unknown Sprinkle] Previous Rx's Medication Instructions Recorded Last Taken Type Aspirin 325 mg PO QDAY #30 tablet 09/04/17 Unknown Rx Spironolactone [Aldactone] 25 mg PO QDAY #30 tablet 09/04/17 Unknown Rx amLODIPine 5 mg PO DAILY #30 tablet 09/04/17 Unknown Rx Amlodipine Besylate [Norvasc] 5 mg PO DAILY #30 tablet 05/05/19 Unknown Rx Furosemide [Lasix] 20 mg PO BID #60 tablet 05/05/19 Unknown Rx lisinopriL [Zestril TAB] 20 mg PO QDAY #30 tablet 05/05/19 Unknown Rx Olopatadine HCl [Patanol 0.1%] 1 drop OP BID #5 ml 01/04/20 Unknown Rx diphenhydrAMINE [Benadryl CAP] 25 mg PO Q6HR PRN #30 capsule 01/04/20 Unknown Rx predniSONE [Deltasone] 40 mg PO QDAY #10 tab 01/04/20 Unknown Rx Allergies Allergy/AdvReac Type Severity Reaction Status Date / Time No Known Allergies Allergy Unverified 05/05/19 14:26 ED Review of Systems ROS: Stated complaint: RED EYES Other details as noted in HPI Constitutional: denies: chills, fever Eyes: eye pain (right), other (erythematous right conjunctiva with tearing). denies: eye discharge, vision change ENT: denies: ear pain, throat pain Respiratory: denies: cough, shortness of breath, wheezing Cardiovascular: denies: chest pain, palpitations Endocrine: no symptoms reported Gastrointestinal: denies: abdominal pain, nausea, diarrhea Genitourinary: denies: urgency, dysuria Musculoskeletal: denies: back pain, joint swelling, arthralgia Skin: denies: rash, lesions Neurological: denies: headache, weakness, paresthesias Psychiatric: denies: anxiety, depression Hematological/Lymphatic: denies: easy bleeding, easy bruising ED Past Medical Hx - Past Medical History Previous Medical History?: Yes Hx Hypertension: Yes Hx Congestive Heart Failure: Yes Additional medical history: enlarge heart - Surgical History Past Surgical History?: No - Social History Smoking Status: Current Every Day Smoker Substance Use Type: Alcohol, Marijuana, Other - Medications Home Medications: Home Medications Medication Instructions Recorded Confirmed Last Taken Type Potassium Chloride [Klor-Con 10 meq PO 3XW 09/03/17 09/03/17 Unknown History Sprinkle] Aspirin 325 mg PO QDAY #30 tablet 09/04/17 Unknown Rx Spironolactone [Aldactone] 25 mg PO QDAY #30 tablet 09/04/17 Unknown Rx amLODIPine 5 mg PO DAILY #30 tablet 09/04/17 Unknown Rx Amlodipine Besylate [Norvasc] 5 mg PO DAILY #30 tablet 05/05/19 Unknown Rx Furosemide [Lasix] 20 mg PO BID #60 tablet 05/05/19 Unknown Rx lisinopriL [Zestril TAB] 20 mg PO QDAY #30 tablet 05/05/19 Unknown Rx Olopatadine HCl [Patanol 0.1%] 1 drop OP BID #5 ml 01/04/20 Unknown Rx diphenhydrAMINE [Benadryl CAP] 25 mg PO Q6HR PRN #30 capsule 01/04/20 Unknown Rx predniSONE [Deltasone] 40 mg PO QDAY #10 tab 01/04/20 Unknown Rx ED Physical Exam - General Limitations: No Limitations General appearance: alert, in no apparent distress - Head Head exam: Present: atraumatic, normocephalic, normal inspection - Eye Eye exam: Present: PERRL, EOMI, other (Erythematous right conjunctiva with mild swelling and copious tearing) Pupils: Present: normal accommodation - ENT ENT exam: Present: normal exam, normal orophraynx, mucous membranes moist, TM's normal bilaterally, normal external ear exam - Neck Neck exam: Present: normal inspection, full ROM - Respiratory Respiratory exam: Present: normal lung sounds bilaterally. Absent: respiratory distress, wheezes, rales, stridor, chest wall tenderness, accessory muscle use, decreased breath sounds, prolonged expiratory - Cardiovascular Cardiovascular Exam: Present: regular rate, normal rhythm, normal heart sounds. Absent: systolic murmur, diastolic murmur, rubs, gallop - GI/Abdominal GI/Abdominal exam: Present: soft, normal bowel sounds. Absent: tenderness, guarding, rebound, hyperactive bowel sounds, hypoactive bowel sounds, organomegaly - Extremities Exam Extremities exam: Present: normal inspection, full ROM, normal capillary refill. Absent: pedal edema, joint swelling, calf tenderness - Back Exam Back exam: Present: normal inspection, full ROM. Absent: tenderness, CVA tenderness (R), CVA tenderness (L), muscle spasm, paraspinal tenderness, vertebral tenderness - Neurological Exam Neurological exam: Present: alert, oriented X3, CN II-XII intact, normal gait, reflexes normal - Psychiatric Psychiatric exam: Present: normal affect, normal mood - Skin Skin exam: Present: warm, dry, intact, normal color. Absent: rash ED Course Vital Signs 01/04/20 15:55 Temperature 98.4 F Pulse Rate 73 Respiratory 17 Rate Blood Pressure 164/113 O2 Sat by Pulse 96 Oximetry ED Medical Decision Making - Medical Decision Making This is a 44-year-old -[place] male with past medical history of hypertension and CHF who presents to the ED with complaint of acute onset persistent painful erythematous itchy right eye with tearing for the last 6 hours after he touched his eye with his shirt about 6 hours ago. Patient states that he is allergic to cats and had touched a cat prior to touching his clothes and his eyes accidentally. Patient states that initially the redness and the swelling as well as tearing was worse the intensity of the symptoms has improved after being in the emergency room. In the ED, patient is alert and oriented x3 and is not in distress. Patient was treated in the ED for acute allergic reaction with steroids. Patient was discharged home on medications and advised to follow-up with his primary care physician in 5 to 7 days for reevaluation or return to the ED immediately if symptoms get worse. - Differential Diagnosis allergic conjunctivitis; eye injury; viral conjunctivitis; keratitis Critical care attestation.: If time is entered above; I have spent that time in minutes in the direct care of this critically ill patient, excluding procedure time. ED Disposition Clinical Impression: Acute allergic conjunctivitis of right eye Disposition: DC-01 TO HOME OR SELFCARE Is pt being admited?: No Does the pt Need Aspirin: No Condition: Stable Instructions: Conjunctivitis (ED) Additional Instructions: Take and apply the medication as advised, follow-up with your primary care physician in 5 to 7 days for reevaluation. Return to the ED immediately if symptoms get worse. Prescriptions: diphenhydrAMINE [Benadryl CAP] 25 mg PO Q6HR PRN #30 capsule PRN Reason: Allergy Symptoms predniSONE [Deltasone] 40 mg PO QDAY #10 tab Olopatadine HCl [Patanol 0.1%] 1 drop OP BID #5 ml Referrals: [facility] [Provider Group] - 3-5 Days Time of Disposition: 20:19 Print Language: LIBYAN
== END 2020-01-04 20:38 | disposition home or self-care (01) ==
LOC: ED 15:48
DX: H10.11 Acute atopic conjunctivitis, right eye (principal); I11.0 Hypertensive heart disease with heart failure; I50.9 Heart failure, unspecified; F17.200 Nicotine dependence, unspecified, uncomplicated; F12.10 Cannabis abuse, uncomplicated; Z79.899 Other long term (current) drug therapy
CPT/HCPCS: 96372; 99282; J1100